=== PATIENT | female | born 1980 | race Caucasian/White ===

== ENCOUNTER 2023-06-01 09:58 | Emergency (ER) | payer OTHER, SELFPAY ==
[2023-06-01 10:04] VITALS: BP 119/66; PULSE 88; TEMP 36.7; O2SAT 98; BMI 32.0
--- NOTE | 2023-06-01 10:11 | XR_ITS ---
The [address] [address] Patient Name: JOMAR BLEVINS MRN: [id number] date: 1980 Sex: F Assigned Patient Location: ER Current Patient Location: ER Accession/Order Number: [id number] Exam Date: 06/01/2023 10:30 Report Date: 06/01/2023 11:17 At the request of: JESSIE WHITE Procedure: XR chest 2V EXAMINATION: XR chest 2V HISTORY: Right-sided rib pain for a few months COMPARISON: 11/27/2020 TECHNIQUE: PA and lateral FINDINGS: LUNGS: No significant pulmonary parenchymal abnormalities. VASCULATURE: No increased pulmonary vasculature. PLEURA: No pneumothorax, effusion, or pleural thickening. CARDIAC: No cardiomegaly or cardiac silhouette abnormality. MEDIASTINUM: No visible mass or adenopathy. BONES: No fracture or visible bone lesion. OTHER: Negative. XR/XR chest 2V IMPRESSION: No acute cardiopulmonary process Electronically authenticated by: BREANA MELCHOR Date: 06/01/2023 11:17
[2023-06-01 10:17] VITALS: O2SAT 97
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
[2023-06-01] MEDS: KETOROLAC TROMETHAMINE 60 MG/2 ML VIAL IM (11:24)
[2023-06-01 11:40] VITALS: BP 120/80; PULSE 81; O2SAT 100
== END 2023-06-01 11:44 | disposition home or self-care (01) ==
PROVIDERS: Emergency Provider Emergency Medicine
DX: S20.219A Contusion of unspecified front wall of thorax, initial encounter (principal); K02.9 Dental caries, unspecified; L25.9 Unspecified contact dermatitis, unspecified cause; Y09 Assault by unspecified means; Z79.899 Other long term (current) drug therapy
CPT/HCPCS: 71046; 96372; 99284

== ENCOUNTER 2023-06-03 07:04 | Emergency (ER) | payer OTHER, SELFPAY ==
[2023-06-03 07:09] VITALS: BP 120/77; PULSE 90; TEMP 36.9; O2SAT 100; BMI 32.3
--- NOTE | 2023-06-03 07:19 | PC.NURSE ---
pt seen for same complaint of R upper rib pain x2 days ago. Negative chest xray for rib fx. Prescribed toradol for home. pt states pain got worse and is worse when she takes a deep breath. No bruising assessed.
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
[2023-06-03] MEDS: KETOROLAC TROMETHAMINE 60 MG/2 ML VIAL IM (07:35)
== END 2023-06-03 07:44 | disposition home or self-care (01) ==
PROVIDERS: Emergency Provider Emergency Medicine
DX: S20.211A Contusion of right front wall of thorax, initial encounter (principal); S29.011A Strain of muscle and tendon of front wall of thorax, initial encounter; Z79.899 Other long term (current) drug therapy; Y04.0XXA Assault by unarmed brawl or fight, initial encounter
CPT/HCPCS: 96372; 99284